=== PATIENT | male | born 1965 | race Caucasian/White ===

== ENCOUNTER → 2016-09-27 | Outpatient (CLI) | payer BC ==
[2016-09-27 08:37] LABS: BUN/CREATININE RATIO 13 (0-10)
== END ==
LOC: LAB 07:46
PROVIDERS: Family Medicine
DX: I10 Essential (primary) hypertension (principal)
CPT/HCPCS: 36415; 80053; 80061

== ENCOUNTER → 2020-09-19 | Outpatient (CLI) | payer BC ==
[~2020-09-19] MED LIST: CLONIDINE HCL0.1 MG PO; COUMADIN10 MG PO; LOPRESSOR 25 MG25 MG PO; NORVASC 5 MG TAB5 MG PO; OMNICEF 300 MG300 MG PO
== END ==
LOC: EXRD 13:26
DX: M19.90 Unspecified osteoarthritis, unspecified site (principal); M17.11 Unilateral primary osteoarthritis, right knee
CPT/HCPCS: 73560

== ENCOUNTER → 2020-11-04 | Outpatient (CLI) | payer BC | LOC: ECHO 09:56 | DX: I10 Essential (primary) hypertension (principal) | CPT/HCPCS: ECHO; 93306; Q9957 ==

== ENCOUNTER → 2021-09-21 | Outpatient (CLI) | payer BC | LOC: KOH-I 11:12 | DX: J20.9 Acute bronchitis, unspecified (principal); J01.90 Acute sinusitis, unspecified; Z20.822 Contact with and (suspected) exposure to COVID-19; R91.8 Other nonspecific abnormal finding of lung field | CPT/HCPCS: 71046 ==

== ENCOUNTER → 2022-01-03 | Outpatient (CLI) | payer BC | LOC: KOH-I 10:45 | DX: M25.551 Pain in right hip (principal); M54.50 Low back pain, unspecified; M16.11 Unilateral primary osteoarthritis, right hip; M47.816 Spondylosis without myelopathy or radiculopathy, lumbar region | CPT/HCPCS: 72110; 73502 ==